=== PATIENT | male | born 1960 | race Caucasian/White ===

== ENCOUNTER 2023-12-06 15:00 | Outpatient (AMB) | payer BC, SELFPAY ==
--- NOTE | 2023-12-06 15:06 | MHC.PC.OV ---
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 Pt has not seen a PCP in over 4-6 years. 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 Patient's past medical history significant for alcohol use disorder, diverticulosis, tobacco use disorder. Has not seen a PCP in over 6 years. 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 Patient is seen at [facility] ER in June of 2023 for acute abdominal pain. CT abdomen showing distended loops of small bowel and distal small bowel loops decompressed. There was also mild wall thickening of the terminal ileum. General surgeon and GI consulted and made patient NPO. Did a barium swallow without any noted obstruction. GI recommended an MRE. Alcohol use disorder: He does admit to drinking 3-6 beers per day and even more on the weekends. He does understand he has a bit of a problem with alcohol. He is interested in trying to cut down and quit drinking. He has had no withdrawal seizures in the past. .. Anxiety: He does report suffering with anxiety. He reports being on lorazepam in the past to help him sleep which was helpful. He reports lot of anxiety comes from passing of close friends and family members. He reports he lives alone and feels somewhat lonely at home. [facility] Medical History Diverticulosis Surgical History Hx of esophagogastroduodenoscopy Family History (Updated 12/06/23 @ 15:35 by Rah Funes PA-C) Father Prostate cancer Brother Prostate cancer Social History Housing: Apartment Alcohol intake: current Alcohol intake frequency: 3 or more drinks per day Alcohol type: beer Patient Tobacco Use Status: Current everyday Tobacco user Tobacco use type: Cigarette Cigarette Packs Per Day: 1 Cigarettes Per Day: 20 Years Smoked: 40 years e-Cigarette/Vaping Use: Never Used Substance Use Type: Crack/Cocaine, Marijuana and Opiates service: No Current occupational status: employed 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 1. Little interest or pleasure in doing things: not at all 2. Feeling down, depressed, or hopeless: not at all 3. Trouble falling or staying asleep, or sleeping too much: not at all 4. Feeling tired or having little energy: not at all 5. Poor appetite or overeating: not at all 6. Feeling bad about yourself - or that you are a failure or have let yourself or your family down: not at all 7. Trouble concentrating on things, such as reading the newspaper or watching television: not at all 8. Moving or speaking so slowly that other people could have noticed. Or the opposite - being so fidgety or restless that you have been moving around a lot more than usual: not at all 9. Thoughts that you would be better off or of hurting yourself in some way: not at all Total score: 0 Depression Screening Interpretation: Negative Depression Screening Done: Yes 84741 - PHQ-9 Billing: Yes Source: Developed by Drs. Charli Motley, Catina Shaw, Ilia Russ and colleagues, with an educational edelmira from [employer]. Thrive Questionnaire Date Thrive assessed: 12/06/23 I am a: Patient What is your living situation today?: I have a steady place to live Within the past 12 months, did the food you bought not last and you didn't have the money to get more?: Never true Within the past 12 months, did you worry whether your food would run out before you got money to buy more?: Never true Do you have trouble paying for medicines?: No Do you have trouble getting transportation to medical appointments?: No Do you have trouble paying your heating and electricity bill?: No Do you have trouble taking care of your child, family member or friend?: No Do you have trouble with day-to-day activities such as bathing, preparing meals, shopping, managing finances, etc.?: No Are you currently unemployed and looking for a job?: No Are you interested in more education?: No Please select the resources that you would like help with: None Currently or been in a relationship where the following occur: No concerns reported THRIVE Score: 0 AUDIT C Alcohol Use Questionnaire (AUDIT-C) 1. How often do you have a drink containing alcohol?: 4 or more times a week 2. How many drinks containing alcohol do you have on a typical day when you are drinking?: 5 or 6 3. How often do you have six or more drinks on one occasion?: Weekly Total Score: 9 KAL-7 AMB Questionnaire KAL-7 Date KAL - 7 assessed: 12/06/23 Feeling nervous, anxious, or on edge: 1 = Several days Not being able to stop or control worryin = More than half the days Worrying too much about different things: 3 = Nearly every day Trouble relaxin = More than half the days Being so restless that it is hard to sit still: 2 = More than half the days Becoming easily annoyed or irritable: 1 = Several days Feeling afraid as if something awful might happen: 1 = Several days Total KAL-7 score (0-4 normal; 5-9 mild; 10-14 moderate; 15-21 severe): 12 Source: Developed by Drs. Charli Motley, Catina Shaw, Ilia Russ and colleagues, with an educational edelmira from [employer] KAL-7 Assessment Billing KAL-7 Assessment Tool: KAL-7 Assessment 42354 Review of Systems Const Denies headache(s) Eyes Denies loss of vision ENT Denies vertigo, Denies dizziness, Denies headache(s) and Denies sore throat Card Denies chest pain, Denies leg edema and Denies lightheadedness Resp Denies cough, Denies hemoptysis and Denies wheezing GI Denies abdominal pain, Denies melena, Denies constipation, Reports heartburn, Denies diarrhea and Reports vomiting Denies dysuria, Denies urinary frequency and Denies urinary urgency Musc Denies arthralgias, Denies joint swelling, Denies numbness and Denies tingling Neuro Denies Abnormal speech present, Denies behavioral changes, Denies vertigo, Denies dizziness, Denies headache(s), Denies loss of vision, Denies memory loss, Denies numbness and Denies tingling Psych Denies anxiety, Denies behavioral changes, Denies depression, Denies memory loss and Denies panic attacks Ger/Lymph Denies easy bleeding and Denies easy bruising Aller/Immun Denies wheezing Physical exam (Primary Care) Vital Signs: Last Vital Signs Pulse 81 12/06/23 15:08 BP 112/68 12/06/23 15:08 Pulse Ox 98 12/06/23 15:08 Oxygen Delivery Method Room Air 12/06/23 15:08 BMI result Body Mass Index 20.0 Tobacco/Smoking Status: Tobacco use Status Tobacco use date assessed 12/06/23 12/06/23 15:16 Patient Tobacco Use Status Current everyday Tobacco 12/06/23 15:28 Tobacco use type Cigarette 12/06/23 15:28 e-Cigarette/Vaping Use Never Used 12/06/23 15:28 PHQ-9: PHQ-9 Score PHQ-9: Total score 0 12/06/23 15:24 Depression Screening Interpretation: Negative Thrive Assessment: Date of Thrive Assessment Date Thrive assessed 12/06/23 12/06/23 15:16 Currently or been in a relationship where the following occur: No concerns reported Const General: healthy appearing, no acute distress, alert and awake Nutritional Appearance: well nourished Orientation/consciousness: oriented to person, oriented to place and oriented to time HENMT Ears: TM's normal bilaterally General nose exam: Normal nasal mucous membranes and turbinates present Eyes Conjunctivae: conjunctivae normal Sclerae: sclerae normal Pupils: Equal, round and reactive pupils present Neck Neck: Yes no lymphadenopathy and Yes no JVD Thyroid: Thyroid normal Carotids: no bruits Resp Effort & Inspection: normal respiratory effort and not tachypneic Auscultation: no crackles, no rales, no rhonchi and no wheezes Cardio Rate: regular rate Rhythm: regular rhythm Heart sounds: no murmurs and normal S1 and S2 GI Palpation (GI): Soft to palpation, nontender, no hepatomegaly and no splenomegaly Auscultation: normal bowel sounds Skin General skin exam: no rashes or lesions noted and dry skin Neuro General: oriented to person, oriented to place and oriented to time Cranial nerves: Yes Equal, round and reactive pupils present Speech: No Abnormal speech present Gait exam (Neuro): Normal gait present Motor exam (neuro): no tremor noted Extrem Right upper extremity: full ROM Left upper extremity: full ROM Right lower extremity: full ROM; no edema Left lower extremity: full ROM; no edema Psych Mental Status: mental status grossly normal Speech and movement: Normal speech and movement present Affect: normal affect Attitude: cooperative Thought process: Normal thought process present Assessment and Plan Assessment & Plan (1) Alcohol use disorder: Code(s): F10.90 - Alcohol use, unspecified, uncomplicated Plan: Reports having 3-4 beers per day, weekends he has much more. He does understand he has a problem with alcohol. Believe that some of his GI issues are related to his excessive alcohol intake He is willing to try naltrexone 50 mg to help him with his alcohol cravings (2) Tobacco dependence: Code(s): F17.200 - Nicotine dependence, unspecified, uncomplicated Plan: He does understand he needs to quit smoking. Not interested in nicotine replacement at this time. We did discuss perhaps starting the lung cancer screening program though will like to hold off on this for now. (3) Diverticulitis: Code(s): K57.92 - Diverticulitis of intestine, part unspecified, without perforation or abscess without bleeding Plan: Patient does have a history of diverticular disease. Most recent hospital stay and did show small bowel decompression and inflammation. (4) GERD (gastroesophageal reflux disease): Code(s): K21.9 - Gastro-esophageal reflux disease without esophagitis Qualifiers: Esophagitis presence: without esophagitis Qualified Code(s): K21.9 - Gastro-esophageal reflux disease without esophagitis Plan: He reports over last few days feeling some major discomforts in his epigastrium and has had a few episodes of vomiting. Will supply patient with PPI therapy and refer to gastro for possible endoscopy to evaluate for peptic ulcer disease in the setting of his chronic alcohol use. Patient willing to try to cut down drinking as this may be the reason for lot of his GI issues. (5) KAL (generalized anxiety disorder): Code(s): F41.1 - Generalized anxiety disorder Plan: Has a history anxiety. Kal 7 score positive for anxiety. He is interested in trying a medication to help him sleep as he has racing thoughts at night.. At this time not interested in cognitive behavioral therapy. (6) RUQ abdominal pain: Code(s): R10.11 - Right upper quadrant pain Plan: Due to patient's right upper quadrant and epigastric pain will send for ultrasound of the abdomen evaluate the liver gallbladder. Orders: Orders US abdomen complete 12/06/23 R10.11 - Right upper quadrant pain Referrals Gastroenterology Referral K57.92 - Diverticulitis of intestine, part unspecified, without perforation or abscess without bleeding Medications: New hydroxyzine HCl 25 mg PO BEDTIME 30 tabs 2RF 30 days F41.1 - Generalized anxiety disorder naltrexone 50 mg PO DAILY 30 tabs 2RF 30 days F10.90 - Alcohol use, unspecified, uncomplicated omeprazole 20 mg PO DAILY 90 caps 1RF 90 days K21.9 - Gastro-esophageal reflux disease without esophagitis Coding Level of Care Code New Pt Level 4 (99607) Diagnoses Alcohol use disorder F10.90 Tobacco dependence F17.200 Diverticulitis K57.92 Gastroesophageal reflux disease without esophagitis K21.9 Esophagitis presence: without esophagitis KAL (generalized anxiety disorder) F41.1 RUQ abdominal pain R10.11 Additional Codes KAL-7 Assessment Billing - KAL-7 Assessment Tool: KAL-7 Assessment 56944 ([id number])
[2023-12-06 15:08] VITALS: BP 112/68; PULSE 81; O2SAT 98
== END 2023-12-06 15:50 | disposition home or self-care (01) ==
PROVIDERS: PCP Physician Assistant; Visit Provider Physician Assistant
DX: K57.92 Diverticulitis of intestine, part unspecified, without perforation or abscess without bleeding (principal); F10.90 Alcohol use, unspecified, uncomplicated; F17.210 Nicotine dependence, cigarettes, uncomplicated; K21.9 Gastro-esophageal reflux disease without esophagitis; F41.1 Generalized anxiety disorder; R10.11 Right upper quadrant pain
CPT/HCPCS: 99204

== ENCOUNTER 2023-12-15 07:23 | Outpatient (REF) | payer BC, SELFPAY ==
[2023-12-15 10:23] LABS: Hematocrit 43.9 % (42.0-52.0); Hemoglobin 14.7 g/dl (14.0-18.0); Mean Corpuscular HGB Conc 33.5 g/dl (31.0-36.0); Mean Corpuscular Hemoglobin 33.2 pg (27.0-33.0); Mean Corpuscular Volume 99.1 fL (80.0-98.0); Mean Platelet Volume 10.3 fL (9.4-12.4); Platelet Count 291 X10*3/uL (160-400); Red Blood Count 4.43 X10*6/uL (4.60-5.80); Red Cell Distribution Width 12.2 % (11.0-16.0); White Blood Count 8.5 X10*3/uL (4.8-10.8)
[2023-12-15 10:45] LABS: Alanine Aminotransferase 13 U/L (0-40); Albumin Level 3.7 g/dL (3.5-5.0); Alkaline Phosphatase 94 U/L (39-117); Anion Gap 13 (12-20); Aspartate Amino Transferase 17 U/L (5-37); Bilirubin Total 0.2 mg/dL (0.0-1.0); Blood Urea Nitrogen 7 mg/dL (9-16); Calcium 9.4 mg/dL (8.4-10.2); Carbon Dioxide 27 mmol/L (22-29); Chloride 106 mmol/L (96-108); Estimated Glomerular Filt Rate > 60; Ethanol < 10 mg/dL; Glucose Fasting 102 mg/dL (60-99); Potassium 4.5 mmol/L (3.3-5.1); Sodium 141 mmol/L (135-145); Total Protein 6.7 g/dL (6.5-8.0)
[2023-12-15 11:36] LABS: Prostate Specific Antigen Scr 3.87 ng/mL (<0.05-4.0)
== END 2023-12-15 07:24 | disposition home or self-care (01) ==
LOC: HO.HMGCLDS 07:23
PROVIDERS: PCP Physician Assistant; Visit Provider Physician Assistant
DX: Z13.1 Encounter for screening for diabetes mellitus (principal); Z12.5 Encounter for screening for malignant neoplasm of prostate; K57.90 Diverticulosis of intestine, part unspecified, without perforation or abscess without bleeding; F10.90 Alcohol use, unspecified, uncomplicated
CPT/HCPCS: 36415; 80053; 80307; 84153; 85027

== ENCOUNTER 2023-12-16 09:30 | Outpatient (REF) | payer BC, SELFPAY ==
--- NOTE | ~2023-12-16 | US_ITS ---
EXAMINATION: US ABDOMEN COMPLETE CLINICAL INFORMATION: Right upper quadrant pain. COMPARISON: None available. TECHNIQUE: Real-time imaging of the abdominal viscera. FINDINGS: PANCREAS: Normal. ABDOMINAL AORTA: Atherosclerotic changes are seen without aneurysm. INFERIOR VENA CAVA: Visualized portions are normal. LIVER: The liver is normal in size. The liver contour is normal. Parenchymal echogenicity is normal. No focal hepatic lesion. There is no intrahepatic biliary duct dilatation seen. GALLBLADDER: Normal. The gallbladder is physiologically distended without evidence of stones, sludge, polyps, wall thickening or pericholecystic fluid. COMMON BILE DUCT: Normal in caliber measuring 0.2 cm in diameter. RIGHT KIDNEY: Normal. No hydronephrosis. No renal calculi or focal parenchymal lesions. The kidney measures 10.1 cm in maximum dimension. LEFT KIDNEY: No hydronephrosis. Some benign parapelvic cysts may be present at the lower pole for which no additional imaging or follow-up is necessary. No renal calculi or focal parenchymal lesions. The kidney measures 10.3 cm in maximum dimension. SPLEEN: Normal. The spleen measures 8.0 cm in maximum dimension. FREE FLUID: None. US/US abdomen complete IMPRESSION: No significant abnormality is seen.
== END 2023-12-16 09:31 | disposition home or self-care (01) ==
LOC: HO.US 09:30
PROVIDERS: PCP Physician Assistant; Visit Provider Physician Assistant
DX: R10.11 Right upper quadrant pain (principal)
CPT/HCPCS: 76700

== ENCOUNTER 2024-04-25 15:42 | Outpatient (AMB) | payer BC, SELFPAY ==
[2024-04-25 15:46] VITALS: BP 124/78; PULSE 64; O2SAT 98; BMI 21.1
--- NOTE | 2024-04-25 15:46 | A.OFFPC_ITS ---
Vital Signs 04/25/24 15:46 Height 5 ft 5 in Weight 127 lb BMI 21.1 BP 124/78 Blood Pressure Location Lt brachial Position Sitting Pulse 64 Pulse Source Pulse Oximeter Pulse Oximetry (%) 98 Oxygen Delivery Method Room Air Intake Visit Reasons: PE Allergies No Known Allergies Allergy (Verified 04/25/24 16:12) Medication List - Last Reconciled 04/25/24 by Rah Funes PA-C hydroxyzine HCl 25 mg PO BEDTIME 30 days Tobacco use date assessed: 04/25/24 Dental Screening Dental Screen Date: 12/06/23 Did you have a dental visit in the last 12 months?: No Did you have a dental problem in the last 6 months where you did not have access to dental care?: No HPI PE HPI Details Patient is 64-year-old male here today for routine annual physical. Patient's past medical history significant for alcohol use disorder, diverticulosis, tobacco use disorder. Alcohol use disorder: Reports he has reduced his drinking quit sick considerably. He reports only a few days a week has a couple of beers. He was prescribed naltrexone though has not used it due to fears of side effects. He does understand he has a bit of a problem with alcohol. He is interested in trying to cut down and quit drinking. He has had no withdrawal seizures in the past. .. Anxiety: He has been prescribed hydroxyzine which he reports has helped him significantly with his sleep and anxiety. Colorectal cancer screening: willing to do cologaurd Vaccines: Up-to-date with COVID vaccine, needs flu and tetanus vaccine, need PCV and shingrex. Laboratory Tests 12/15/23 12/15/23 07:26 Unknown Fasting Glucose 102 H PSA Screen 3.87 [facility] Medical History Diverticulosis Surgical History Hx of esophagogastroduodenoscopy Family History Father Prostate cancer Brother Prostate cancer Social History (Updated 04/25/24 @ 16:18 by Rah Funes PA-C) Housing: Apartment Alcohol intake: current Alcohol intake frequency: 3 or more drinks per day Alcohol type: beer Patient Tobacco Use Status: Current everyday Tobacco user Tobacco use type: Cigarette Cigarette Packs Per Day: 1 Cigarettes Per Day: 20 Years Smoked: 40 years e-Cigarette/Vaping Use: Never Used Substance Use Type: Crack/Cocaine, Marijuana and Opiates service: No Current occupational status: employed 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 1. Little interest or pleasure in doing things: not at all 2. Feeling down, depressed, or hopeless: not at all 3. Trouble falling or staying asleep, or sleeping too much: not at all 4. Feeling tired or having little energy: not at all 5. Poor appetite or overeating: not at all 6. Feeling bad about yourself - or that you are a failure or have let yourself or your family down: not at all 7. Trouble concentrating on things, such as reading the newspaper or watching television: not at all 8. Moving or speaking so slowly that other people could have noticed. Or the opposite - being so fidgety or restless that you have been moving around a lot more than usual: not at all 9. Thoughts that you would be better off or of hurting yourself in some way: not at all Total score: 0 Depression Screening Interpretation: Negative Depression Screening Done: Yes 89603 - PHQ-9 Billing: Yes Source: Developed by Drs. Charli Motely, Catina Shaw, Ilia Russ and colleagues, with an educational edelmira from [employer]. Thrive Questionnaire Date Thrive assessed: 12/06/23 I am a: Patient What is your living situation today?: I have a steady place to live Within the past 12 months, did the food you bought not last and you didn't have the money to get more?: Never true Within the past 12 months, did you worry whether your food would run out before you got money to buy more?: Never true Do you have trouble paying for medicines?: No Do you have trouble getting transportation to medical appointments?: No Do you have trouble paying your heating and electricity bill?: No Do you have trouble taking care of your child, family member or friend?: No Do you have trouble with day-to-day activities such as bathing, preparing meals, shopping, managing finances, etc.?: No Are you currently unemployed and looking for a job?: No Are you interested in more education?: No Please select the resources that you would like help with: None Currently or been in a relationship where the following occur: I choose not to answer THRIVE Score: 0 AUDIT C Alcohol Use Questionnaire (AUDIT-C) 1. How often do you have a drink containing alcohol?: 4 or more times a week 2. How many drinks containing alcohol do you have on a typical day when you are drinking?: 3 or 4 3. How often do you have six or more drinks on one occasion?: Monthly Total Score: 7 JACOB-7 AMB Questionnaire JACOB-7 Date JACOB - 7 assessed: 04/25/24 Feeling nervous, anxious, or on edge: 0 = Not at all Not being able to stop or control worryin = Not at all Worrying too much about different things: 0 = Not at all Trouble relaxin = Not at all Being so restless that it is hard to sit still: 0 = Not at all Becoming easily annoyed or irritable: 0 = Not at all Feeling afraid as if something awful might happen: 0 = Not at all Total JACOB-7 score (0-4 normal; 5-9 mild; 10-14 moderate; 15-21 severe): 0 Source: Developed by Drs. Charli Motley, Catina Shaw, Ilia Russ and colleagues, with an educational edelmira from [employer]. JACOB-7 Assessment Billing JACOB-7 Assessment Tool: JACOB-7 Assessment 71482 Review of Systems Const Denies excessive sweating, Denies fatigue and Denies headache(s) Eyes Denies loss of vision ENT Denies vertigo, Denies dizziness, Denies headache(s) and Denies sore throat Card Denies chest pain, Denies leg edema and Denies lightheadedness Resp Denies cough, Denies hemoptysis and Denies wheezing GI Denies abdominal pain, Denies melena, Denies constipation, Denies diarrhea and Denies vomiting Denies dysuria, Denies urinary frequency and Denies urinary urgency Musc Denies arthralgias, Denies joint swelling, Denies numbness and Denies tingling Skin/Breast Denies rash and Denies skin ulcer Neuro Denies Abnormal speech present, Denies behavioral changes, Denies vertigo, Denies dizziness, Denies headache(s), Denies loss of vision, Denies memory loss, Denies numbness and Denies tingling Psych Denies anxiety, Denies behavioral changes, Denies depression, Denies memory loss and Denies panic attacks Endo Denies excessive sweating, Denies fatigue, Denies flushing, Denies polydipsia and Denies polyuria Ger/Lymph Denies easy bleeding and Denies easy bruising Aller/Immun Denies wheezing Physical exam (Primary Care) Vital Signs: Last Vital Signs Pulse 64 04/25/24 15:46 BP 124/78 04/25/24 15:46 Pulse Ox 98 04/25/24 15:46 Oxygen Delivery Method Room Air 04/25/24 15:46 BMI result Body Mass Index 21.1 Tobacco/Smoking Status: Tobacco use Status Tobacco use date assessed 04/25/24 04/25/24 16:00 Patient Tobacco Use Status Current everyday Tobacco 04/25/24 16:18 Tobacco use type Cigarette 04/25/24 16:18 e-Cigarette/Vaping Use Never Used 04/25/24 16:18 Are you ready to quit: No Tobacco cessation counseling provided: Yes Items discussed: Nicotine replacement Relapse Prevention: discussed the importance of a supportive environment, discussed negative mood or depression after quitting, weight gain after smoking is common and discussed dietary, exercise and/or lifestyle changes Number of minutes spent counselin CPT code: 03392 - 4-10 Minutes PHQ-9: PHQ-9 Score PHQ-9: Total score 0 04/25/24 16:37 Depression Screening Interpretation: Negative Thrive Assessment: Date of Thrive Assessment Date Thrive assessed 12/06/23 04/25/24 15:47 Currently or been in a relationship where the following occur: I choose not to answer Const General: healthy appearing, no acute distress, alert and awake Nutritional Appearance: well nourished Orientation/consciousness: oriented to person, oriented to place and oriented to time [facility] Head: Yes normocephalic Ears: TM's normal bilaterally General nose exam: Normal nasal mucous membranes and turbinates present Face and sinus: No sinus tenderness Mouth: Normal oral and palatal mucosa present and tongue normal Teeth and gingiva: dentition normal and gingiva normal Throat: Yes posterior oropharynx normal, Yes tonsils normal and Yes uvula midline Eyes Conjunctivae: conjunctivae normal Sclerae: sclerae normal Pupils: Equal, round and reactive pupils present EOM: EOMs intact bilaterally Direct Ophthalmoscopy: No no photophobia Neck Neck: Yes no lymphadenopathy and Yes no JVD Thyroid: Thyroid normal Carotids: no bruits Chest Chest palpation & inspection: no tenderness Resp Effort & Inspection: normal respiratory effort and not tachypneic Auscultation: no crackles, no rales, no rhonchi and no wheezes Cardio Jugular venous distension: no JVD Rate: regular rate Rhythm: regular rhythm Heart sounds: no murmurs and normal S1 and S2 Bruits: no carotid bruits Peripheral pulses: Peripheral pulses 2+ throughout GI Inspection: Yes normal to inspection, No abdominal wall ecchymosis and No visible herniation Palpation (GI): Soft to palpation, nontender, no hepatomegaly and no splenomegaly Auscultation: normal bowel sounds General: Yes no CVA tenderness Back/Spine/Pelvis Back: no CVA tenderness and No back tenderness Cervical Spine: cervical ROM normal Thoracic/Lumbar Spine: thoracic and lumbar spine normal to inspection, straight leg raise negative bilaterally, No thoraco-lumbar ROM limited and No lumbar spinal tenderness Skin General skin exam: no rashes or lesions noted and dry skin Lesions: no lesions Rashes: no rashes Wounds: no wounds Neuro General: oriented to person, oriented to place and oriented to time Cranial nerves: Yes Equal, round and reactive pupils present Cognition (Neuro): normal cognition Speech: No Abnormal speech present Gait exam (Neuro): Normal gait present Motor exam (neuro): no tremor noted Extrem Right upper extremity: full ROM Left upper extremity: full ROM Right lower extremity: full ROM; no edema Left lower extremity: full ROM; no edema Psych Appearance: grossly normal Mental Status: mental status grossly normal Speech and movement: Normal speech and movement present Affect: normal affect Attitude: cooperative Thought process: Normal thought process present Office Procedures Flu Questionnaire Does the patient have a severe egg allergy?: No Does the patient have severe life threatening allergies?: No Does the patient have a fever or illness today?: No Has the patient ever had Guillain-Wallingford Syndrome?: No Has the patient ever had any past reaction to a flu shot?: No Immunizations Fluarix Triv 8907-0901 (PF) 45 mcg (15 mcg x 3)/0.5 mL IM syringe Performing Provider: Rah Funes PA-C Performing Location: [facility] [place] [facility] Administered by: JOANN Cabrera on 04/25/24 16:37 Dose Route Admin Location Dispensed Lot Number Expiration Date NDC Silk Screen [employer]inter 0.5 mL IM Left Deltoid 0.5 mL [id number] 12/03/24 22490-405-20 [employer] VIS Given Date VIS Provided VIS Publication Date 04/25/24 Single Vaccine 21 Eligibility Eligibility Date Funding Source Not [facility] Eligible 04/25/24 Private Coding Level of Care Code Est Pt Prev Care 40-64y(69327) Diagnoses Annual physical exam Z00.00 Gastroesophageal reflux disease without esophagitis K21.9 Esophagitis presence: without esophagitis Tobacco dependence F17.200 Colon cancer screening Z12.11 Alcohol use disorder F10.90 Additional Codes JACOB-7 Assessment Billing - JACOB-7 Assessment Tool: JACOB-7 Assessment 07833 ([id number]) PHQ-9 - 80119 - PHQ-9 Billing: Yes ([id number]) Vital Signs *Quality* - CPT code: 51191 - 4-10 Minutes ([id number]) Assessment & Plan Assessment & Plan (1) Annual physical exam: Code(s): Z00.00 - Encounter for general adult medical examination without abnormal findings Category: Medical Plan: As per HPI (2) GERD (gastroesophageal reflux disease): Code(s): K21.9 - Gastro-esophageal reflux disease without esophagitis Category: Medical Qualifiers: Esophagitis presence: without esophagitis Qualified Code(s): K21.9 - Gastro-esophageal reflux disease without esophagitis Plan: Patient has reduced his alcohol intake he was using omeprazole which was helpful. He reports his GERD symptoms have resolved without the use of medication. (3) Tobacco dependence: Code(s): F17.200 - Nicotine dependence, unspecified, uncomplicated Category: Medical Plan: Patient does understand he needs to quit smoking. He has been smoking over 30 years a pack a day. He is willing to speak with the lung cancer screening program (4) Colon cancer screening: Code(s): Z12.11 - Encounter for screening for malignant neoplasm of colon Category: Medical Plan: Willing to do Cologuard (5) Alcohol use disorder: Code(s): F10.90 - Alcohol use, unspecified, uncomplicated Category: Medical Plan: Still admits to drinking several times a week though has reduced his alcohol intake significantly. His GI symptoms have gotten significantly better as well. Has been prescribed naltrexone in the past though did not try this medication due to fears of side effects. He feels he is doing okay as far as his alcohol intake Orders: Orders Influenza [id number] Immunization 04/25/24 Z23 - Encounter for immunization Comprehensive [place]. Panel Fast 04/25/24 Z13.1 - Encounter for screening for diabetes mellitus Complete Blood Count no Diff 04/25/24 K21.9 - Gastro-esophageal reflux disease without esophagitis Referrals Cologuard Test Z12.11 - Encounter for screening for malignant neoplasm of colon Thoracic/General Surgery Referral F17.200 - Nicotine dependence, unspecified, uncomplicated Medications: Refilled hydroxyzine HCl 25 mg PO BEDTIME 30 tabs 3RF 30 days F41.1 - Generalized anxiety disorder
== END 2024-04-25 16:39 | disposition home or self-care (01) ==
PROVIDERS: PCP Physician Assistant; Visit Provider Physician Assistant
DX: Z00.00 Encounter for general adult medical examination without abnormal findings (principal); K21.9 Gastro-esophageal reflux disease without esophagitis; F17.200 Nicotine dependence, unspecified, uncomplicated; Z12.11 Encounter for screening for malignant neoplasm of colon; F10.90 Alcohol use, unspecified, uncomplicated

== ENCOUNTER → 2024-04-25 15:42 | Outpatient (BNVA) | payer BC, SELFPAY | PROVIDERS: PCP Physician Assistant; Visit Provider Physician Assistant | DX: Z00.00 Encounter for general adult medical examination without abnormal findings (principal); Z23 Encounter for immunization; K21.9 Gastro-esophageal reflux disease without esophagitis; F17.200 Nicotine dependence, unspecified, uncomplicated; F10.90 Alcohol use, unspecified, uncomplicated | CPT/HCPCS: 90471; 90656; 96127 ==

== ENCOUNTER 2024-09-05 08:50 | Outpatient (AMB) | payer BC, SELFPAY ==
--- NOTE | 2024-09-05 08:54 | A.OFFVIS_ITS ---
Vital Signs 09/05/24 09:01 Height 5 ft 5 in Weight 125 lb BMI 20.8 BP 142/78 H Blood Pressure Location Rt brachial Position Sitting Pulse 80 Pulse Source Pulse Oximeter Pulse Oximetry (%) 97 Oxygen Delivery Method Room Air Comment Pt confirms had cigarette prior to appt. Intake Visit Reasons: Colonoscopy consultation, referred by Mayra Funes Intake Note: ESTABLISHED PATIENT for colo screening. Cologuard ordered but never collected. Chief Complaint; Pt denies any GI concerns at this time. Pt confirms cologuard was never submitted. Last colo 2016 w/ EGD. Bit Tapper Required: No Accompanied by: Self / Same As Patient Allergies No Known Allergies Allergy (Verified 09/05/24 09:02) HPI HPI Colonoscopy consultation, referred by Mayra Funes: Details: 64 y?ear old? male with past medical history of GERD, diverticulitis, tobacco dependence is here today for pre colonoscopy screening.? Patient was sent to us by his PCP.? Last colonoscopy in 2017 at [facility]..? Patient denies any gastrointestinal symptoms in the past or at present.? Denies any family history of gastrointestinal disease, colon polyps, or CRC.? Denies history of difficulty with sedation or anesthesia in the past.? Negative for history of sleep apnea.? Denies any history of cardiac, renal, pulmonary, or hepatic disease.?? No history of infectious? diseases like hepatitis A, B, C, HIV or tuberculosis.? Patient is not on any anticoagulation [facility] Medical History (Updated 09/05/24 @ 09:05 by Aliza Manzo, [facility]) GERD (gastroesophageal reflux disease) Diverticulosis Surgical History Encounter for screening colonoscopy Hx of esophagogastroduodenoscopy Family History Father Prostate cancer Brother Prostate cancer Social History Housing: Apartment Alcohol intake: current Alcohol intake frequency: 3 or more drinks per day Alcohol type: beer Patient Tobacco Use Status: Current everyday Tobacco user Tobacco use type: Cigarette Cigarette Packs Per Day: 1 Cigarettes Per Day: 20 Years Smoked: 40 years e-Cigarette/Vaping Use: Never Used Substance Use Type: Crack/Cocaine, Marijuana and Opiates service: No Current occupational status: employed 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 Cognitive needs: No Hearing needs: No Vision needs: No Review of Systems Const Denies weight gain and Denies weight loss ENT Reports no additional complaints, Denies dysphagia and Denies odynophagia Card Reports no additional complaints Resp Reports no additional complaints GI Denies abdominal pain, Denies belching, Denies melena, Denies bloating, Denies change in bowel habits, Denies dysphagia, Denies excessive flatus, Denies dyspepsia, Denies heartburn, Denies diarrhea, Denies loose stools, Denies nausea, Denies odynophagia and Denies vomiting Reports no additional complaints Musc Reports no additional complaints Neuro Reports no additional complaints Psych Reports no additional complaints Endo Reports no additional complaints Physical Exam Vital Signs: Last Vital Signs Pulse 80 09/05/24 09:01 BP 142/78 H 09/05/24 09:01 Pulse Ox 97 09/05/24 09:01 Oxygen Delivery Method Room Air 09/05/24 09:01 BMI result Body Mass Index 20.8 Const General: healthy appearing, no acute distress and well developed Nutritional Appearance: well nourished Orientation/consciousness: patient oriented x3 Resp Effort & Inspection: normal respiratory effort, able to speak in complete sentences, no tracheal deviation and symmetric chest movement Auscultation: clear to auscultation bilaterally Cardio Rate: regular rate GI Inspection: Yes normal to inspection and No distended Palpation (GI): Soft to palpation, not firm, nontender and No hepatosplenomegaly present Auscultation: normal bowel sounds General: Yes no CVA tenderness Back/Spine/Pelvis Back: no CVA tenderness Skin General skin exam: elasticity normal, turgor normal and dry skin Neuro General: patient oriented x3 Psych Appearance: grossly normal Mental Status: mental status grossly normal Assessment & Plan Assessment & Plan (1) Colon cancer screening: Code(s): Z12.11 - Encounter for screening for malignant neoplasm of colon Category: Medical Plan Patient denies any GI, cardiac or respiratory symptoms.? Denies any issues with anesthesia in the past.? Denies any history of sleep apnea.? No history infectious diseases in the past or present.? Not on any anticoagulation therapy.? No family or personal history of colon cancer or polyps.? Patient denies melena, hematochezia, unintentional weight loss or ribbon like stools.? Discussed at length the pre-procedure,? prep, diet & medications as well as what to expect prior, during and after the procedure.?? Stressed the importance of good bowel prep.? Recommended the use of Vaseline or Calmoseptine OTC & baby wipes with bowel movements to promote comfort.? ?Patient verbalizes understanding and agrees to plan of care.? He was given the opportunity to ask questions and all questions answered.? We will see him after the procedure.? Medications: New bisacodyl (Dulcolax (bisacodyl)) take 4 tabs at noon the day before your colonoscopy 20 mg (4 x 5 mg) PO ONCE 1 day 4 tabs 0RF constipation Z12.11 - Encounter for screening for malignant neoplasm of colon polyethylene glycol 3350 (Miralax) As directed by gastroenterology department at [facility] 238 grams PO ONCE 238 grams 0RF Z12.11 - Encounter for screening for malignant neoplasm of colon Coding Level of Care Code New Pt Level 3 (86493) Diagnoses Colon cancer screening Z12.11 Time Spent (min) 40 Comment 30 minutes spent with patient and additional 10 minutes spent reviewing his records
[2024-09-05 09:01] VITALS: BP 142/78; PULSE 80; O2SAT 97; BMI 20.8
--- OUTSIDE RECORDS SUMMARY | 2024-09-05 09:30 | XMS_ITS ---
Author Name [facility] Organization Unknown Care Team Organization Name Specialty Phone Email Start Date End [employer] te [employer] 06/26/2023
== END 2024-09-05 09:25 | disposition home or self-care (01) ==
LOC: HO.HGI 08:51
PROVIDERS: PCP Physician Assistant; Visit Provider Nurse Practitioner Family
DX: Z01.818 Encounter for other preprocedural examination (principal); Z12.11 Encounter for screening for malignant neoplasm of colon
CPT/HCPCS: S0285

== ENCOUNTER 2024-10-18 14:56 | Outpatient (AMB) | payer BC, SELFPAY ==
--- NOTE | 2024-10-18 15:14 | A.OFFPC_ITS ---
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 Required: No Accompanied by: Self / Same As Patient Allergies No Known Allergies Allergy (Verified 10/18/24 15:31) Medication List - Last Reconciled 10/18/24 by Rah Funes PA-C bisacodyl (Dulcolax (bisacodyl)) 20 mg (4 x 5 mg) PO ONCE 1 day hydroxyzine HCl 25 mg PO BEDTIME 30 days polyethylene glycol 3350 (Miralax) 238 grams PO ONCE Tobacco use date assessed: 10/18/24 Dental Screening Dental Screen Date: 10/18/24 Did you have a dental visit in the last 12 months?: Yes Did you have a dental problem in the last 6 months where you did not have access to dental care?: No Was dental information given to patient?: Patient has dentist HPI f/u smoking HPI Details Patient is 64-year-old male here today for a follow-up visit Patient's past medical history significant for alcohol use disorder, diverticulosis, tobacco use disorder. Alcohol use disorder: He does admit to drinking anywhere from 4-6 beers per day. He does understand he needs to quit though has found it difficult to do so. He reports he drinks because of his stress related to his job. .. Tobacco dependency: Continues to smoke cigarettes and reports even smoking more cigarettes as of late due to his stress. He denies having any chronic pulmonary issues though recently having a cough due to upper respiratory infection. .. Anxiety: He has been prescribed hydroxyzine which he reports has helped him significantly with his sleep and anxiety. [facility] Medical History GERD (gastroesophageal reflux disease) Diverticulosis Surgical History Encounter for screening colonoscopy Hx of esophagogastroduodenoscopy Family History Father Prostate cancer Brother Prostate cancer Social History Housing: Apartment Alcohol intake: current Alcohol intake frequency: 3 or more drinks per day Alcohol type: beer Patient Tobacco Use Status: Current everyday Tobacco user Tobacco use type: Cigarette Cigarette Packs Per Day: 1 Cigarettes Per Day: 20 Years Smoked: 40 years e-Cigarette/Vaping Use: Never Used Substance Use Type: Crack/Cocaine, Marijuana and Opiates service: No Current occupational status: employed 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 1. Little interest or pleasure in doing things: not at all 2. Feeling down, depressed, or hopeless: not at all 3. Trouble falling or staying asleep, or sleeping too much: several days 4. Feeling tired or having little energy: several days 5. Poor appetite or overeating: several days 6. Feeling bad about yourself - or that you are a failure or have let yourself or your family down: not at all 7. Trouble concentrating on things, such as reading the newspaper or watching television: not at all 8. Moving or speaking so slowly that other people could have noticed. Or the opposite - being so fidgety or restless that you have been moving around a lot more than usual: not at all 9. Thoughts that you would be better off or of hurting yourself in some way: not at all Total score: 3 Depression Screening Interpretation: Positive Depression Screening Follow-up: Existing condition Depression Screening Done: Yes 38079 - PHQ-9 Billing: Yes Source: Developed by Drs. Charli Motley, Catina Shaw, Ilia Russ and colleagues, with an educational edelmira from [employer] Thrive Questionnaire Date Thrive assessed: 10/18/24 I am a: Patient What is your living situation today?: I have a steady place to live Within the past 12 months, did the food you bought not last and you didn't have the money to get more?: Never true Within the past 12 months, did you worry whether your food would run out before you got money to buy more?: Never true Do you have trouble paying for medicines?: No Do you have trouble getting transportation to medical appointments?: No Do you have trouble paying your heating and electricity bill?: No Do you have trouble taking care of your child, family member or friend?: No Do you have trouble with day-to-day activities such as bathing, preparing meals, shopping, managing finances, etc.?: No Are you currently unemployed and looking for a job?: No Are you interested in more education?: No Please select the resources that you would like help with: None Currently or been in a relationship where the following occur: I choose not to answer THRIVE Score: 0 AUDIT C Alcohol Use Questionnaire (AUDIT-C) 1. How often do you have a drink containing alcohol?: 4 or more times a week 2. How many drinks containing alcohol do you have on a typical day when you are drinking?: 5 or 6 3. How often do you have six or more drinks on one occasion?: Daily or almost daily Total Score: 10 JACOB-7 AMB Questionnaire JACOB-7 Date JACOB - 7 assessed: 10/18/24 Feeling nervous, anxious, or on edge: 1 = Several days Not being able to stop or control worryin = Several days Worrying too much about different things: 1 = Several days Trouble relaxin = Several days Being so restless that it is hard to sit still: 1 = Several days Becoming easily annoyed or irritable: 0 = Not at all Feeling afraid as if something awful might happen: 0 = Not at all Total JACOB-7 score (0-4 normal; 5-9 mild; 10-14 moderate; 15-21 severe): 5 Source: Developed by Drs. Charli Motley, Catina Shaw, Ilia mccarthy nd colleagues, with an educational edelmira from [employer] JACOB-7 Assessment Billing JACOB-7 Assessment Tool: JACOB-7 Assessment 28855 Review of Systems Const Denies headache(s) Eyes Denies loss of vision ENT Denies vertigo, Denies dizziness, Denies headache(s) and Denies sore throat Card Denies chest pain, Denies leg edema and Denies lightheadedness Resp Denies cough, Denies hemoptysis and Denies wheezing GI Denies abdominal pain, Denies melena, Denies constipation, Denies diarrhea and Denies vomiting Denies dysuria, Denies urinary frequency and Denies urinary urgency Musc Denies arthralgias, Denies joint swelling, Denies numbness and Denies tingling Neuro Denies Abnormal speech present, Denies behavioral changes, Denies vertigo, Denies dizziness, Denies headache(s), Denies loss of vision, Denies memory loss, Denies numbness and Denies tingling Psych Denies anxiety, Denies behavioral changes, Denies depression, Denies memory loss and Denies panic attacks Ger/Lymph Denies easy bleeding and Denies easy bruising Aller/Immun Denies wheezing Physical exam (Primary Care) Vital Signs: Last Vital Signs Temp 97.3 F 10/18/24 15:25 Pulse 80 10/18/24 15:25 BP 140/90 H 10/18/24 15:25 Pulse Ox 96 10/18/24 15:25 Oxygen Delivery Method Room Air 10/18/24 15:25 BMI result Body Mass Index 20.1 Tobacco/Smoking Status: Tobacco use Status Tobacco use date assessed 10/18/24 10/18/24 15:26 Patient Tobacco Use Status Current everyday Tobacco 10/18/24 15:16 Tobacco use type Cigarette 10/18/24 15:16 e-Cigarette/Vaping Use Never Used 10/18/24 15:16 Are you ready to quit: No Tobacco cessation counseling provided: Yes Items discussed: Nicotine replacement Relapse Prevention: discussed the importance of a supportive environment, d iscussed negative mood or depression after quitting, weight gain after smoking is common and discussed dietary, exercise and/or lifestyle changes Number of minutes spent counselin CPT code: 47322 - 4-10 Minutes PHQ-9: PHQ-9 Score PHQ-9: Total score 3 10/18/24 15:26 Depression Screening Interpretation: Positive Depression Screening Follow-up: Existing condition Thrive Assessment: Date of Thrive Assessment Date Thrive assessed 10/18/24 10/18/24 15:16 Currently or been in a relationship where the following occur: I choose not to answer Const General: healthy appearing, no acute distress, alert and awake Nutritional Appearance: well nourished Orientation/consciousness: oriented to person, oriented to place and oriented to time HENMT Ears: TM's normal bilaterally General nose exam: Normal nasal mucous membranes and turbinates present Eyes Conjunctivae: conjunctivae normal Sclerae: sclerae normal Pupils: Equal, round and reactive pupils present Neck Neck: Yes no lymphadenopathy and Yes no JVD Thyroid: Thyroid normal Carotids: no bruits Resp Effort & Inspection: normal respiratory effort and not tachypneic Auscultation: no crackles, no rales, no rhonchi and no wheezes Cardio Rate: regular rate Rhythm: regular rhythm Heart sounds: no murmurs and normal S1 and S2 GI Palpation (GI): Soft to palpation, nontender, no hepatomegaly and no splenomegaly Auscultation: normal bowel sounds Skin General skin exam: no rashes or lesions noted and dry skin Neuro General: oriented to person, oriented to place and oriented to time Cranial nerves: Yes Equal, round and reactive pupils present Speech: No Abnormal speech present Gait exam (Neuro): Normal gait present Motor exam (neuro): no tremor noted Extrem Right upper extremity: full ROM Left upper extremity: full ROM Right lower extremity: full ROM; no edema Left lower extremity: full ROM; no edema Psych Mental Status: mental status grossly normal Speech and movement: Normal speech and movement present Affect: normal affect Attitude: cooperative Thought process: Normal thought process present Coding Level of Care Code Est Pt Level 4 (80240) Diagnoses Tobacco dependence F17.200 Alcohol use disorder F10.90 Bronchitis J40 JACOB (generalized anxiety disorder) F41.1 Additional Codes JACOB-7 Assessment Billing - JACOB-7 Assessment Tool: JACOB-7 Assessment 78286 ([id number]) PHQ-9 - 00624 - PHQ-9 Billing: Yes ([id number]) Vital Signs *Quality* - CPT code: 33433 - 4-10 Minutes ([id number]) Assessment & Plan Assessment & Plan (1) Tobacco dependence: Code(s): F17.200 - Nicotine dependence, unspecified, uncomplicated Category: Medical Plan: Patient does understand he needs to quit smoking. He has been smoking over 30 years a pack a day. He does report smoking more as of late due to increased stress at his job. We have discussed nicotine replacement though he declines at this time (2) Alcohol use disorder: Code(s): F10.90 - Alcohol use, unspecified, uncomplicated Category: Medical Plan: He admits that he has been drinking anywhere from 4-6 beers per day. He does understand that this is quite excessive . He reports his trigger to drink as his stress he is undergoing at work. (3) Bronchitis: Code(s): J40 - Bronchitis, not specified as acute or chronic Category: Medical Plan: He does report having a bit of a bronchitis as of late. He does have rhonchi and pulmonary exam today in office. Will supply patient with Augmentin (4) JACOB (generalized anxiety disorder): Code(s): F41.1 - Generalized anxiety disorder Category: Medical Plan: Patient's JACOB-7 score positive for anxiety which has been existing condition for him. He mostly has trouble sleeping and uses hydroxyzine with good effect on his sleep. Medications: New amoxicillin-pot clavulanate 875-125 mg 1 tab PO BID 7 days 14 tabs 0RF J40 - Bronchitis, not specified as acute or chronic Refilled hydroxyzine HCl 25 mg PO BEDTIME 30 days 30 tabs 3RF F41.1 - Generalized anxi ety disorder
[2024-10-18 15:25] VITALS: BP 140/90; PULSE 80; TEMP 36.3; O2SAT 96; BMI 20.1
== END 2024-10-18 15:42 | disposition home or self-care (01) ==
LOC: HO.HMCH 14:57
PROVIDERS: PCP Physician Assistant; Visit Provider Physician Assistant
DX: F17.200 Nicotine dependence, unspecified, uncomplicated (principal); F10.90 Alcohol use, unspecified, uncomplicated; J40 Bronchitis, not specified as acute or chronic; F41.1 Generalized anxiety disorder

== ENCOUNTER → 2024-10-18 14:56 | Outpatient (BNVA) | payer BC, SELFPAY | PROVIDERS: PCP Physician Assistant; Visit Provider Physician Assistant | DX: J40 Bronchitis, not specified as acute or chronic (principal); F10.90 Alcohol use, unspecified, uncomplicated; F41.1 Generalized anxiety disorder; F17.210 Nicotine dependence, cigarettes, uncomplicated | CPT/HCPCS: 96127 ==

== ENCOUNTER 2025-05-09 16:02 | Outpatient (AMB) | payer BC, SELFPAY ==
--- NOTE | 2025-05-09 15:52 | MHC.PC.OV ---
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 Alcohol use disorder: He does admit to drinking anywhere from 4-6 beers per day. He does understand he needs to quit though has found it difficult to do so. He reports he drinks because of his stress related to his job. .. Tobacco dependency: Continues to smoke cigarettes and reports even smoking more cigarettes as of late due to his stress. He denies having any chronic pulmonary issues though recently having a cough due to upper respiratory infection. .. Anxiety: He has been prescribed hydroxyzine which he reports has helped him significantly with his sleep and anxiety Colorectal cancer screening: willing to do cologaurd Vaccines: Up-to-date with COVID vaccine, needs flu and tetanus vaccine, need PCV and shingrex. [facility] Medical History GERD (gastroesophageal reflux disease) Diverticulosis Surgical History Encounter for screening colonoscopy Hx of esophagogastroduodenoscopy Family History Father Prostate cancer Brother Prostate cancer Social History (Updated 05/09/25 @ 16:18 by Rah Funes PA-C) Housing: Apartment Alcohol intake: current Alcohol intake frequency: 3 or more drinks per day Alcohol type: beer Patient Tobacco Use Status: Current everyday Tobacco user Tobacco use type: Cigarette Cigarette Packs Per Day: 1 Cigarettes Per Day: 20 Years Smoked: 40 years e-Cigarette/Vaping Use: Never Used Substance Use Type: Crack/Cocaine, Marijuana and Opiates service: No Current occupational status: employed 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 Cognitive needs: No Hearing needs: No Vision needs: No Questionnaire Thrive Questionnaire Date Thrive assessed: 10/18/24 I am a: Patient What is your living situation today?: I have a steady place to live Within the past 12 months, did the food you bought not last and you didn't have the money to get more?: Never true Within the past 12 months, did you worry whether your food would run out before you got money to buy more?: Never true Do you have trouble paying for medicines?: No Do you have trouble getting transportation to medical appointments?: No Do you have trouble paying your heating and electricity bill?: No Do you have trouble taking care of your child, family member or friend?: No Do you have trouble with day-to-day activities such as bathing, preparing meals, shopping, managing finances, etc.?: No Are you currently unemployed and looking for a job?: No Are you interested in more education?: No Please select the resources that you would like help with: None Currently or been in a relationship where the following occur: I choose not to answer THRIVE Score: 0 AUDIT C Alcohol Use Questionnaire (AUDIT-C) 1. How often do you have a drink containing alcohol?: 4 or more times a week 2. How many drinks containing alcohol do you have on a typical day when you are drinking?: 3 or 4 3. How often do you have six or more drinks on one occasion?: Never Total Score: 5 JACOB-7 AMB Questionnaire JACOB-7 Date JACOB - 7 assessed: 10/18/24 Source: Developed by Drs. Charli Motley, Catina Shaw, Ilia Russ and colleagues, with an educational edelmira from [employer]. Physical exam (Primary Care) Vital Signs: Last Vital Signs Temp 97.1 F 05/09/25 16:06 Pulse 56 05/09/25 16:06 Resp 16 05/09/25 16:06 BP 142/90 H 05/09/25 16:06 Pulse Ox 96 05/09/25 16:06 Oxygen Delivery Method Room Air 05/09/25 16:06 BMI result Body Mass Index 21.3 Tobacco/Smoking Status: Tobacco use Status Tobacco use date assessed 10/18/24 05/09/25 15:54 Patient Tobacco Use Status Current everyday Tobacco 05/09/25 16:18 Tobacco use type Cigarette 05/09/25 16:18 e-Cigarette/Vaping Use Never Used 05/09/25 16:18 Thrive Assessment: Date of Thrive Assessment Date Thrive assessed 10/18/24 05/09/25 15:54 Currently or been in a relationship where the following occur: I choose not to answer Office Procedures Flu Questionnaire Does the patient have a severe egg allergy?: No Does the patient have severe life threatening allergies?: No Does the patient have a fever or illness today?: No Has the patient ever had Guillain-[place] Syndrome?: No Has the patient ever had any past reaction to a flu shot?: No Immunizations Fluarix (PF) 45 mcg (15 mcg x 3)/0.5 mL IM syringe Performing Provider: Rah Funes PA-C Performing Location: [facility] Administered by: JOANN Cabrera on 05/09/25 16:34 Dose Route Admin Location Dispensed Lot Number Expiration Date [facility] Technical Services Specialist 0.5 mL IM Left Deltoid 0.5 mL [id number] 12/03/25 15280-288-86 [employer] by Brooke VIS Given Date VIS Provided VIS Publication Date 05/09/25 Single Vaccine 24 Eligibility Eligibility Date Funding Source Not VFC Eligible 05/09/25 Private pneumoc 20-taylor conj-dip cr(PF) 0.5 mL IM syringe Performing Provider: Rah Funes PA-C Performing Location: [facility] Administered by: JOANN Cabrera on 05/09/25 16:34 Dose Route Admin Location Dispensed Lot Number Expiration Date [facility] Technical Services Specialist 0.5 mL IM Left Deltoid 0.5 mL [id number] 02/04/26 1253-7662-22 [employer] Total Dispensed Waste 0.5 mL 0 % VIS Given Date VIS Provided VIS Publication Date 05/09/25 Single Vaccine 24 Eligibility Eligibility Date Funding Source Not [facility] Eligible 05/09/25 Private Coding Level of Care Code Est Pt Prev Care 40-64y(45842) Diagnoses Annual physical exam Z00.00 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 Chronicity: chronic Gout etiology: idiopathic Gout site: foot Laterality: right Presence of tophus: without tophus Tobacco dependence F17.200 Alcohol use disorder F10.90 Assessment & Plan Assessment & Plan (1) Annual physical exam: Code(s): Z00.00 - Encounter for general adult medical examination without abnormal findings Category: Medical Plan: As per HPI (2) Gout: Code(s): M10.9 - Gout, unspecified Category: Medical Qualifiers: Chronicity: chronic Gout etiology: idiopathic Gout site: foot Laterality: right Presence of tophus: without tophus Qualified Code(s): M1A.0710 - Idiopathic chronic gout, right ankle and foot, without tophus (tophi) Plan: Patient has intermittent right foot swelling and pain, clinically appears to be gout in the setting of his daily alcohol use. Will set him up with colchicine to use for as needed flare up. Advise on low purine diet and reducing his alcohol intake (3) Tobacco dependence: Code(s): F17.200 - Nicotine dependence, unspecified, uncomplicated Category: Medical Plan: Patient does understand he needs to quit smoking though has found it very difficult to do so. Not interested in nicotine replacement at this time (4) Alcohol use disorder: Code(s): F10.90 - Alcohol use, unspecified, uncomplicated Category: Medical Plan: Patient does drink several drinks per day and does understand he needs to cut down. Orders: Orders Lipid Panel Today F17.200 - Nicotine dependence, unspecified, uncomplicated Uric Acid Today M10.9 - Gout, unspecified Influenza [id number] Immunization Today Z23 - Encounter for immunization Comprehensive [place]. Panel Fast Today Z13.1 - Encounter for screening for diabetes mellitus Complete Blood Count no Diff Today Z13.1 - Encounter for screening for diabetes mellitus Prostate Specific Antigen Scr Today F17.200 - Nicotine dependence, unspecified, uncomplicated, Z12.5 - Encounter for screening for malignant neoplasm of prostate Pneumococcal 20 Immunization Today Z12.11 - Encounter for screening for malignant neoplasm of colon, Z23 - Encounter for immunization Referrals Lung Cancer Screening Referral F17.200 - Nicotine dependence, unspecified, uncomplicated Cologuard Test Z12.11 - Encounter for screening for malignant neoplasm of colon Medications: New colchicine 0.6 mg PO BID 14 tabs 0RF 7 days M10.9 - Gout, unspecified
[2025-05-09 16:06] VITALS: BP 142/90; PULSE 56; RESP 16; TEMP 36.2; O2SAT 96; BMI 21.3
== END 2025-05-09 16:38 | disposition home or self-care (01) ==
LOC: HO.HMCH 16:03
PROVIDERS: PCP Physician Assistant; Visit Provider Physician Assistant
DX: Z23 Encounter for immunization (principal); Z12.11 Encounter for screening for malignant neoplasm of colon

== ENCOUNTER → 2025-05-09 16:02 | Outpatient (BNVA) | payer BC, SELFPAY | PROVIDERS: PCP Physician Assistant; Visit Provider Physician Assistant | DX: Z00.00 Encounter for general adult medical examination without abnormal findings (principal); Z23 Encounter for immunization; M1A.0710 Idiopathic chronic gout, right ankle and foot, without tophus (tophi); F17.210 Nicotine dependence, cigarettes, uncomplicated; F10.90 Alcohol use, unspecified, uncomplicated | CPT/HCPCS: 90471; 90472; 90656; 90677 ==